=== PATIENT | female | born 1990 | race Two or more races ===

== ENCOUNTER 2024-08-14 20:25 | Emergency (ER) | payer MEDICAID, OTHER ==
[~2024-08-14] VITALS: Ht 162.6 cm; Wt 79.1 kg
[2024-08-14 21:17] VITALS: BP 143/65; PULSE 101; RESP 17; TEMP 98.2; O2SAT 99
--- NOTE | 2024-08-14 22:02 | ED.PDOC ---
Eye-HPI HPI Comments C/C of left pupil dilation. Pt states she wears false eye lashes, thinks adhesive may have irritated eye. Pt states she rinsed her eye with cold watter, and pupil still dilated. Started at 1800 today. Left pupil 4mm, right 2mm, both reactive to light. VSS. NKDA. Denies PMH. Pt A&O x4 Chief Complaint: Eye Problem Time Seen by MD: 20:31 Reviewed Notes: Nurses Notes, Medications, Allergies Allergies: Coded Allergies: NO KNOWN ALLERGIES (Unverified , 08/14/24) Home Meds Active Scripts Moxifloxacin Hydrochloride (Moxifloxacin) 0.5 % Chris, 1 DROP LEFTEYE TID for 5 Days, #3 ML Prov:SHAISTA LAY SENIOR LEAD PROJECT MANAGER 08/14/24 Information Source: Patient Mode of Arrival: Ambulatory Past Medical History PAST MEDICAL HISTORY: Denies Surgical History: Denies all surgeries DIRECTOR PHARMACOVIGILANCE History: No Pertinent DIRECTOR PHARMACOVIGILANCE History Family History Family History: Reviewed,noncontributory to illness Social History Smoker: Non-Smoker Alcohol: Denies ETOH Use Drugs: Denies Drug Use Constitutional: denies: chills, diaphoresis, fatigue, fever, malaise, sweats, weakness, others EENTM: reports: eye pain, eye redness; denies: blurred vision, double vision, ear bleeding, ear discharge, ear drainage, ear pain, ear ringing, hearing loss, mouth pain, mouth swelling, nasal discharge, nose bleeding, nose congestion, nose pain, photophobia, tearing, throat pain, throat swelling, voice changes, others Respiratory: denies: cough, hemoptysis, orthopnea, SOB at rest, shortness of breath, SOB with excertion, stridor, wheezing, others Cardiovascular: denies: chest pain, dizzy spells, diaphoresis, Dyspnea on exertion, edema, irregular heart beat, left arm pain, lightheadedness, pal pitations, PND, syncope, others Gastrointestinal: denies: abdomen distended, abdominal pain, blood streaked bowels, constipated, diarrhea, dysphagia, difficulty swallowing, hematemesis, melena, nausea, poor appetite, poor fluid intake, rectal bleeding, rectal pain, vomiting, others Genitourinary: denies: abnormal vagina bleeding, burning, dyspareunia, dysuria, flank pain, frequency, hematuria, incontinence, pain, , vagina discharge, urgency, others Neurological: denies: dizziness, fainting, headache, left sided numbness, left sided weakness, numbness, paresthesia, pre-existing deficit, right sided numbness, right sided weakness, seizure, speech problems, tingling, tremors, weakness, others Musculoskeletal: denies: back pain, gout, joint pain, joint swelling, muscle pain, muscle stiffness, neck pain, others Integumetry: denies: bruises, change in color, change in hair/nails, dryness, laceration, lesions, lumps, rash, wounds, others Allergic/Immunocompromised: denies: Difficulty Healing, Frequent Infections, Hives, Itching, others Hematologic/Lymphatic: denies: anemia, blood clots, easy bleeding, easy b ruising, swollen glands, others Endocrine: denies: excessive hunger, excessive sweating, excessive thirst, excessive urination, flushing, intolerance to cold, intolerance to heat, unexplained weight gain, unexplained weight loss, others Psychiatric: denies: anxiety, bipolar disorder, depression, hopeless, panic disorder, schizophrenia, sleepless, suicidal, others Physical Exam General Appearance: No Apparent Distress, Normal HEENT: Pharynx Normal Neck: Full Range of Motion, Non-Tender Respiratory: Chest Non-Tender, Lungs Clear, No Accessory Muscle Use, No Respiratory Distress, Normal Breath Sounds Cardiovascular: No Murmur, Normal Peripheral Pulses, Regular Rate/Rhythm Breast Exam: Deferred Gastrointestinal: No Organomegaly, Non Tender, No Pulsatile Mass, Normal Bowel Sounds, Soft Genitalia: Deferred Pelvic: Deferred Rectal: Deferred Extremities: No calf tenderness, Normal capillary refill, Normal inspection, Normal range of motion, Non-tender, No pedal edema Musculoskeletal : Apperance: Normal Neurologic: Alert, hospitality housekeeper II-XII nml as Tested, No Motor Deficits, Normal Affect, Normal Mood, No Sensory Deficits Cerebellar Function: Normal Reflexes: Normal Skin: Dry, Normal Color, Warm Lymphatic: No Adenopathy Was a procedure done? Was a procedure done?: Yes Sedation Sedation?: No Informed consent obtained: Yes EENT DIFF Eye: Corneal Ulceration, Foreign Body-Conjunctiva, Foreign Body-Corneal, Foreign Body-Intraocular, Foreign Body-Lid, Glaucoma, Globe Rupture X-Ray, Labs, Meds, VS Vital Signs Date Time Temp Pulse Resp B/P (MAP) Pulse Ox O2 Delivery O2 Flow Rate FiO2 08/14/24 21:17 98.2 101 17 143/65 (91) 99 98.2 X-Ray, Labs, Meds, VS Comment See procedure note. Pupil 3 mm left and 3 mm right no noted difference on exam. Advised patient to stop rubbing eyes and avoid putting lashes and accidentally glue into the eye. Advised to follow up with her PCP in 2-3 days as necessary Ophthalmology if symptoms return. Patient indicates understanding and agrees with discharge plan of care. Time of 1ST Reevaluation: 21:30 Reevaluation 1ST: Unchanged Time of 2ND Reevaluation: 22:34 Reevaluation 2ND: Improved Patient Education/Counseling: Diagnosis, Treatment, Prognosis, Need For Follow Up Family Education/Counseling: No Family Present Departure 1 Departure Time of Disposition: 22:33 Impression: Primary Impression: Eye discomfort Qualified Codes: H57.12 - Ocular pain, left eye Disposition: 01 HOME / SELF CARE / HOMELESS Condition: Stable e-Prescriptions Moxifloxacin Hydrochloride (Moxifloxacin) 0.5 % Chris 1 DROP LEFTEYE TID for 5 Days, #3 ML Prov: SHAISTA LAY 08/14/24 Discharged With: Significant Other Critical Care Note Critical Care Time?: No Stability Stability form required: SHAISTA Jenkins Aug 14, 2024 22:02
[2024-08-14] MEDS: TETRACAINE HCL 0.5% OPTH(EYE) SOLN 4ML LEFTEYE ONE (22:15)
[2024-08-14] MEDS: FLUORESCEIN SOD OPTH TEST STRIP LEFTEYE ONE (22:15)
[2024-08-14] MEDS ORDERED: MOXI0.5D9 LEFTEYE (22:54)
== END 2024-08-14 22:52 | disposition home or self-care (01) ==
LOC: ER 20:25
DX: H53.142 Visual discomfort, left eye (principal); Z79.899 Other long term (current) drug therapy